=== PATIENT | female | born 1965 | race Two or more races ===

== ENCOUNTER 2025-06-22 13:39 | Emergency (ER) | payer MEDICAID, OTHER, SELFPAY ==
[~2025-06-22] VITALS: Ht 157.5 cm; Wt 92.8 kg
[2025-06-22 13:43] VITALS: BP 148/93; PULSE 80; RESP 16; TEMP 97.8; O2SAT 100
== END 2025-06-22 14:08 | disposition left against medical advice (07) ==
LOC: ER 13:39
DX: M25.512 Pain in left shoulder (principal); Z53.21 Procedure and treatment not carried out due to patient leaving prior to being seen by health care provider